=== PATIENT | female | born 1975 | race Caucasian/White ===

== ENCOUNTER 2018-02-11 09:50 | Emergency (ER) | payer OTHER ==
[~2018-02-11] VITALS: Ht 167.6 cm; Wt 90.7 kg
[~2018-02-11 09:50] MED LIST: BACTRIM DS TAB1 EACH PO; CEPHALEXIN500 MG PO; DOXYCYCLINE HY100 MG PO; NORCO 5-325 TA1 EACH PO; ONDANSETRON HCL8 MG PO
[2018-02-11] MEDS ORDERED: VENTOLIN HFA18 GM INH (10:19)
[2018-02-11] MEDS ORDERED: LEVAQUIN500 MG PO (10:19)
[2018-02-11] MEDS ORDERED: PROMETH-CODEIN 65 ML PO (10:19)
== END 2018-02-11 10:20 | disposition home or self-care (01) ==
LOC: ED 09:50
DX: J40 Bronchitis, not specified as acute or chronic (principal); F17.200 Nicotine dependence, unspecified, uncomplicated
CPT/HCPCS: 99283

== ENCOUNTER 2021-09-12 06:00 | Day surgery (SDC) | payer OTHER ==
[~2021-09-12] VITALS: Ht 167.6 cm; Wt 121.8 kg
[~2021-09-12 06:00] MED LIST changes: +ANUSOL-HC25 MG PR; +FLOVENT HFA12 GM INH; +LEVAQUIN500 MG PO; +LISINOPRIL20 MG PO; +PROMETH-CODEIN 65 ML PO; +VENTOLIN HFA18 GM INH
--- NOTE | 2021-09-12 09:52 | NUR ---
09/12/21 0952 Loida Hawley 0942- PT ARRIVES TO PACU WITH IN OPA IN PLACE. PT HAS BOTH ARMS UP IN THE AIR AND TENSE. TRYING TO REORIENT THE PT AND HELP HER RELAX. RESP EVEN AND UNLABORED. AFTER A FEW ATTEMPTS PT IS ABLE TO BE CALMED AND RELAXES HER ARMS AT HER SIDE. OXYGEN SAT HIGH 90'S ON 6L VIA MASK.
--- NOTE | 2021-09-12 10:10 | NUR ---
PT ALERT, ORIENTED AND SOMEWHAT ANXIOUS. HER WAS HERE BUT SHE SENT HIM OUT. HE HAS DIFFICULTY IN HOSPITALS AND WAS NOT HELPING. WILL RETURN FOR DC. PT WANTED TO GO "TO THE GRAVE WITH ALL HER BODY PARTS"-EVEN THIS ONE IN A JAR IF POSSIBLE. DR JIMÉNEZ HAD DISCUSSED THIS. PT REQUESTED PRAYER, GAVE COMFORT AND ENCOURAGEMENT. WILL FOLLOW NEEDED
--- NOTE | 2021-09-12 10:50 | NUR ---
PATIENT BACK TO ROOM FROM PACU. RECEIVED REPORT FROM BEA NOYOLA. PATIENT RATES PAIN 2/10. DENIES NAUSEA. ALL 4 SURGICAL SITE DRESSINGS ARE CLEAN, DRY, AND INTACT. ICE PACK IN PLACE. PROVIDED PATIENT WITH COFFEE, WATER, AND JELLO. CALL LIGHT WITHIN REACH.
--- NOTE | 2021-09-12 11:34 | NUR ---
PATIENT AWAKE AND RESTING IN BED. VSS. RATES PAIN 2-3/10. DENIES NAUSEA. ALL 4 DRESSINGS ARE CLEAN, DRY, AND INTACT. ICE PACK IN PLACE. PATIENT IS DRINKING WATER. PARTNER AT BEDSIDE. CALL LIGHT WITHIN REACH.
--- NOTE | 2021-09-12 11:58 | NUR ---
STEADY ON FEET WITH ONE PERSON STAND BY ASSIST. DENIES NAUSEA. MEDICATED FOR 3/10 ABD PAIN. VOIDS 200ML CLEAR YELLOW URINE AFTER AMBULATING TO BR. SITTING AT EDGE OF BED, CALL LIGHT IN REACH.
--- NOTE | 2021-09-12 12:09 | NUR ---
PROVIDED PATIENT WITH DISCHARGE INSTRUCTIONS, VERBALIZED UNDERSTANDING AND ALL QUESTIONS ANSWERED. GAVE PATIENT A WHEELCHAIR RIDE TO FRONT OF HOSPITAL WHERE HER PARTNER WAS WAITING.
--- NOTE | 2021-09-13 07:36 | OR ---
[facility] [address] [place], [place] [address] Signed DATE OF OPERATION: 09/12/2021 SURGEON: Reese Jiménez MD PREOPERATIVE DIAGNOSES: 1. Chronic cholelithiasis, cholecystitis. 2. Focal nodular hyperplasia. POSTOPERATIVE DIAGNOSES: 1. Chronic cholelithiasis, cholecystitis. 2. Focal nodular hyperplasia. PROCEDURE: Laparoscopic cholecystectomy without intraoperative cholangiogram. ESTIMATED BLOOD LOSS: Minimal. FINDINGS: Efren indeed had a large 3 x 4 cm stone impacted in the neck of her gallbladder. Because of this, we could not insert our intraoperative cholangiocatheter. Therefore, the intraoperative cholangiogram was abandoned. We could see a lesion on the top of the right lobe of her liver. She does have a history of focal nodular hyperplasia. INDICATIONS: Efren is a 46-year-old obese female at 5 feet 4 inches and a body mass index of 45. She was having trouble with epigastric belt-like abdominal pain. It got worse the last few months. She has had it for almost 2 years. She went to her primary care provider. The ultrasound in February of 2021, demonstrated a 3 cm stone in the neck of the gallbladder. Common bile duct was unremarkable. Incidentally, liver lesion was noted. A CT scan of the abdomen and pelvis followed demonstrating the large gallstone along with the liver lesion. Her alpha-fetoprotein level was normal at 2.7. She had been referred to her spectrographic analyst, Dr. Brittny Jenkins at [facility]. An MRI followed and she has benign focal nodular hyperplasia of the liver. This does not require further followup. However, she is symptomatic from her large gallstone. She was asked to see me as the local general surgeon, have her gallbladder removed. In addition, she has had a change in bowel habits with constipation, but occasional diarrhea. She would normally go every day, but now is going every 3rd day. She has also seen some intermittent rectal bleeding and had been to the emergency room in that regard. As a result, she was asked to also see me for a colonoscopy following the Electronically Signed By: REESE JIMÉNEZ MD 09/13/21 0736 PATIENT NAME: EFREN CASTANEDA OPERATIVE REPORT DATE OF : 77 REPORT #: [id number] PHYSICIAN: REESE JIMÉNEZ MD PCP: CLAUDIA ISAACS NP REPORT IS CONFIDENTIAL AND NOT TO BE RELEASED WITHOUT AUTHORIZATION [facility] [address] [place] [id number] Signed gallbladder surgery. In the office, I gave her a booklet on the gallbladder. We had reviewed the location and function of the gallbladder. We reviewed gallstones. We reviewed laparoscopic versus open cholecystectomy. She understands the expected intraop and postop course. We did review the risks including, but not limited to bleeding, infection, scarring, change in contour of the skin, damage to bowel, damage to main bile duct, incisional hernias, and other unforeseen comorbidities. She had expressed understanding and wished to proceed. PROCEDURE NOTE: I met with Efren in our preop area. We reviewed her above findings. After this, she was taken into the operating room and placed in the supine position. She was placed under general endotracheal tube anesthesia. She was given preoperative antibiotics along with subcutaneous heparin. SCDs were utilized. She was then prepped and draped in the usual sterile fashion. All trocars were placed in her usual positions under direct visualization of the camera without difficulty. We had taken pictures throughout for photodocumentation. She had chronic inflammatory changes of the omentum to her gallbladder from the top all the way down to the triangle of Calot. It took an extra nurse to scrub in and a few extra minutes to carefully dissect these adhesions down and away from her triangle of Calot. We dissected out the triangle of Calot and we followed the cystic artery and clipped it several times and divided it sharply. We then developed the cystic duct and we found that her cystic duct was quite deep and behind the large gallstone. We really did not feel comfortable trying to access that from a technical standpoint with our cholangiocatheter. The common bile duct was normal on preoperative ultrasound as well as laboratory work. We therefore abandoned our intraoperative cholangiogram. The cystic duct stump was clipped x2 and then divided sharply next to the gallbladder itself. It took a few extra minutes to very slowly and carefully remove the gallbladder from the gallbladder fossa with the help of our ball-tip cautery. The gallbladder was then placed into an EndoCatch bag. The right upper quadrant had been irrigated and suctioned out until clear. We used our laparoscopic suturing device to pass 0-Vicryl suture on either side of the fascia of the subxiphoid trocar site to close that primarily. After this, we had to enlarge our supraumbilical trocar site in order to remove the gallstone and the gallbladder. We opened the gallbladder on the back table by our circulating nurse. It had tremendously thick black bile and a very large 3 x 4 cm gallstone. She had chronic inflammatory changes to the gallbladder wall. We closed the supraumbilical trocar site with interrupted [id number] 0-Vicryl sutures. Local anesthetic was injected into all trocar sites. Each trocar site was irrigated and suctioned out until clear. We closed the skin and dermis of each trocar site with interrupted 3-0 subcuticular Monocryl sutures. We used a 5-0 fast absorbing plain gut suture to close the skin of the supraumbilical trocar site. After this, dry gauze and tape were applied over all incisions. Efren was awakened from her anesthesia, extubated in the OR, and taken to recovery room in stable condition. Electronically Signed By: REESE JIMÉNEZ MD 09/13/21 0736 PATIENT NAME: EFREN CASTANEDA OPERATIVE REPORT DATE OF : 77 REPORT #: [id number] PHYSICIAN: REESE JIMÉNEZ MD PCP: CLAUDIA ISAACS NP REPORT IS CONFIDENTIAL AND NOT TO BE RELEASED WITHOUT AUTHORIZATION [address] [address] Signed MD ANGELINA Montejo/MODL /[id number] cc: MD Claudia German, FLAKER TENDER Reese Jiménez MD Chart Filed Incomplete Copies: BRITTNY JENKINS MD, ANDREW L MD CHART FILED INCOMPLETE ~ Electronically Signed By: REESE JIMÉNEZ MD 09/13/21 0736 PATIENT NAME: EFREN CASTANEDA OPERATIVE REPORT DATE OF : 77 REPORT #: [id number] PHYSICIAN: REESE JIMÉNEZ MD PCP: CLAUDIA ISAACS NP REPORT IS CONFIDENTIAL AND NOT TO BE RELEASED WITHOUT AUTHORIZATION
--- NOTE | 2021-09-16 13:39 | PATH ---
[facility] [address] [place], [place] [address] Signed SPECIMEN(S): A GALLBLADDER AND GALLSTONE SPECIMEN SOURCE: A. GALLBLADDER AND GALLSTONE CLINICAL HISTORY: Laparoscopic cholecystectomy. Cholelithiasis. FINAL PATHOLOGIC DIAGNOSIS: Gallbladder, cholecystectomy: - Chronic cholecystitis. - Cholelithiasis. - No evidence of neoplasia. REGANK:nallely:C2NR MICROSCOPIC EXAMINATION: Histologic sections of all submitted blocks are examined by light microscopy. These findings, together with the gross examination, support the pathologic diagnosis. GROSS DESCRIPTION: The specimen, labeled "CS, A," and designated on the requisition "gallbladder and gallstone," is received in formalin and consists of Specimen: Previously opened gallbladder. Dimensions: 9.3 x 4.8 cm. Serosa: Multi-pigmented and ragged. Cystic Duct: Narrowed. Calculi: One large, two-toned green, round calculus measuring 3.9 x 2.6 x 2.5 cm. Mucosa: Brown-pink with congested areas with roughened striations. Wall thickness: Up to 0.5 cm. Lymph node: No pericystic lymph nodes are grossly identified. Additional: None. Candle Maker sections are submitted in cassette (A1). AT (under the direct supervision of a pathologist) The Gross Description was prepared using a voice recognition system. The report was reviewed for accuracy; however, sound-alike word errors, addition and/or deletions may occur. If there is any question about this report, please contact Client Services. PERFORMING LABORATORY: PATIENT NAME: EFREN CASTANEDA PATHOLOGY DATE OF : 77 REPORT #: [id number] PHYSICIAN: SUDEEP BEDOLLA PCP: JINNY ISAACS NP REPORT IS CONFIDENTIAL AND NOT TO BE RELEASED WITHOUT AUTHORIZATION [facility] [address] [place], [place] [address] Signed The technical component was performed by [facility], [address] [place] [address] (Spinning Mule Tender: Shruthi Gonsalez MD; CLIA# [id number]). [facility] [place] [address]. Diagnostician: Quentin Zaidi MD Pathologist Electronically Signed 09/16/2021 Copies: ~ PATIENT NAME: EFREN CASTANEDA PATHOLOGY DATE OF : 77 REPORT #: [id number] PHYSICIAN: SUDEEP BEDOLLA PCP: JINNY ISAACS NP REPORT IS CONFIDENTIAL AND NOT TO BE RELEASED WITHOUT AUTHORIZATION
== END 2021-09-12 12:09 | disposition home or self-care (01) ==
LOC: DS 06:00
PROVIDERS: ATTEND Colon & Rectal Surgery
PROC: 0FT44ZZ Resection of Gallbladder, Percutaneous Endoscopic Approach (ICD-10-PCS; principal; 2021-09-12 06:45)
DX: K80.10 Calculus of gallbladder with chronic cholecystitis without obstruction (principal); K76.89 Other specified diseases of liver; K59.00 Constipation, unspecified; I10 Essential (primary) hypertension; E66.01 Morbid (severe) obesity due to excess calories; J44.9 Chronic obstructive pulmonary disease, unspecified; F17.210 Nicotine dependence, cigarettes, uncomplicated; K21.9 Gastro-esophageal reflux disease without esophagitis; R73.03 Prediabetes; Z68.42 Body mass index [BMI] 45.0-49.9, adult
CPT/HCPCS: 00790; J0131; J0330; J0690; J1100; J1644; J1885; J2405; J2704; J3010; J7121

== ENCOUNTER 2021-09-13 21:34 | Emergency (ER) | payer OTHER ==
[~2021-09-13] VITALS: Ht 167.6 cm; Wt 121.6 kg
--- OUTSIDE RECORDS SUMMARY | 2021-09-13 21:36 | XMS ---
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 Jennifer VISIT COUNT (12 MO.) 2 MAGALY Morley TOTAL 2 NOTE: Visits indicate total known visits. ED/UCC VISIT TRACKING (12 MO.) 09/13/2021 21:34 [facility]AL[facility] [place] TYPE: Emergency COMPLAINT: - POST OP PROBLEM 06/05/2021 02:28 [facility] [place] TYPE: Emergency COMPLAINT: - RECTAL BLEEDING INPATIENT VISIT TRACKING (12 MO.) No inpatient visits to display in this time frame [email or web address]
== END 2021-09-13 23:15 | disposition left against medical advice (07) ==
LOC: ED 21:34
DX: R10.11 Right upper quadrant pain (principal); I10 Essential (primary) hypertension; F17.200 Nicotine dependence, unspecified, uncomplicated; Z79.899 Other long term (current) drug therapy
CPT/HCPCS: 74177; 80053; 83690; 85025; 99284-25

== ENCOUNTER 2021-09-18 05:09 | Emergency (ER) | payer OTHER ==
[~2021-09-18] VITALS: Ht 167.6 cm; Wt 117.9 kg
--- OUTSIDE RECORDS SUMMARY | 2021-09-18 05:12 | XMS ---
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 Care History Medical/Surgical 09/15/2021 [facility] - Patient is currently established with [facility]. If patient is seen in the ED during business hours. Please contact CHWs at [facility]. Care Recommendation: If this patient has had 5 or more Emergency Department visits in the last 12 months.\T\nbsp; Patient will require education on the scope and purpose of the ED as an acute care provider not a Primary Care Provider and should not be utilized for chronic conditions.\T\nbsp; These are guidelines and the provider should exercise clinical judgment when providing care. Jennifer VISIT COUNT (12 MO.) 3 MAGALY Morley TOTAL 3 NOTE: Visits indicate total known visits. 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
== END 2021-09-18 06:46 | disposition home or self-care (01) ==
LOC: ED 05:09
DX: M79.652 Pain in left thigh (principal); M79.662 Pain in left lower leg; I10 Essential (primary) hypertension; F17.200 Nicotine dependence, unspecified, uncomplicated; Z79.899 Other long term (current) drug therapy
CPT/HCPCS: 93971; 99283-25

== ENCOUNTER 2022-05-14 05:48 | Emergency (ER) | payer OTHER ==
[~2022-05-14] VITALS: Ht 167.6 cm; Wt 116.0 kg
--- OUTSIDE RECORDS SUMMARY | 2022-05-14 05:50 | XMS ---
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 Details: PATIENT LEFT AMA CRITERIA MET - [facility] - Has Care Guidelines - Group Notification CARE PROVIDERS JINNY ISAACS Emergency Medicine 06/05/2021-Current PHONE: [phone] TIFFANIE DAMON Nurse Practitioner: Family 07/03/2019-Current PHONE: Unknown Rupert has no Care Guidelines for this patient. Care History Medical/Surgical 09/18/2021 [facility] Patient has follow up visit with Dr. Rogers on 09/22/2021. 09/15/2021 [facility] - Patient is currently established with [facility]. If patient is seen in the ED during business hours. Please contact CHWs at [facility]. Care Recommendation: If this patient has had 5 or more Emergency Department visits in the last 12 months.\T\nbsp; Patient will require education on the scope and purpose of the ED as an acute care provider not a Primary Care Provider and should not be utilized for chronic conditions.\T\nbsp; These are guidelines and the provider should exercise clinical judgment when providing care. E.D. VISIT COUNT (12 MO.) 4 MAGALY Morley TOTAL 4 NOTE: Visits indicate total known visits. 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
== END 2022-05-14 06:51 | disposition home or self-care (01) ==
LOC: ED 05:48
DX: K11.5 Sialolithiasis (principal); I10 Essential (primary) hypertension; F17.200 Nicotine dependence, unspecified, uncomplicated; Z79.899 Other long term (current) drug therapy
CPT/HCPCS: 99283

== ENCOUNTER 2023-09-22 23:18 | Emergency (ER) | payer OTHER ==
[~2023-09-22] VITALS: Ht 167.6 cm; Wt 108.0 kg
--- OUTSIDE RECORDS SUMMARY | 2023-09-22 23:25 | XMS ---
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 - Patient with suicidal and/or homicidal ideations eloped. - Patient eloped with IV in place. Details: PATIENT LWBS CRITERIA MET - Group Notification CARE PROVIDERS JINNY ISAACS Emergency Medicine 06/05/2021-Current PHONE: [phone] TIFFANIE DAMON Nurse Practitioner: 07/03/2019-Current PHONE: Unknown -Donnie- Dentist: Vacuum Closing Machine Operator [facility] PHONE: [phone] Rupert has no Care Guidelines for this patient. Care History Medical/Surgical 09/18/2021 [facility] Patient has follow up visit with Dr. Rogers on 09/22/2021. 09/15/2021 [facility] - Patient is currently established with [facility]. If patient is seen in the ED during business hours. Please contact CHWs at [facility]. Care Recommendation: If this patient has had [...] providing care. E.D. VISIT COUNT (12 MO.) 2 [facility]. TOTAL 2 NOTE: Visits indicate total known visits. ED/UCC VISIT TRACKING (12 MO.) 09/22/2023 23:18 [facility] [place] TYPE: Emergency COMPLAINT: - LT EAR PAIN 06/17/2023 07:10 MAGAL[facility] [place] TYPE: Emergency COMPLAINT: - FLU SYMPTOMS DIAGNOSES: - COVID-19 - Essential (primary) hypertension - Headache, unspecified - Nicotine dependence, unspecified, uncomplicated - Other senior care (current) drug therapy INPATIENT VISIT TRACKING (12 MO.) No inpatient visits to display in this time frame [email or web address]
[2023-09-22 23:55] VITALS: BP 135/83
== END 2023-09-22 23:58 | disposition home or self-care (01) ==
LOC: ED 23:18
DX: H60.92 Unspecified otitis externa, left ear (principal); I10 Essential (primary) hypertension; F17.200 Nicotine dependence, unspecified, uncomplicated; Z79.899 Other long term (current) drug therapy
CPT/HCPCS: 99283; A9270

== ENCOUNTER 2025-05-05 08:21 | Emergency (ER) | payer OTHER ==
[~2025-05-05] VITALS: Ht 167.6 cm; Wt 100.0 kg
[2025-05-05] MEDS ORDERED: HYDROCODONE/ACETA 5/325 TAB PO ONE ×2 (08:30→09:00)
[2025-05-05] MEDS ORDERED: HYDROCODON-ACE1 EA10 PO (09:16)
[2025-05-05 09:52] VITALS: BP 138/87
== END 2025-05-05 09:53 | disposition home or self-care (01) ==
LOC: ED 08:21
DX: S42.255A Nondisplaced fracture of greater tuberosity of left humerus, initial encounter for closed fracture (principal); I10 Essential (primary) hypertension; F17.200 Nicotine dependence, unspecified, uncomplicated; W01.0XXA Fall on same level from slipping, tripping and stumbling without subsequent striking against object, initial encounter
CPT/HCPCS: 73030; 99283

== ENCOUNTER 2025-05-21 08:44 | Day surgery (SDC) | payer OTHER ==
[~2025-05-21] VITALS: Ht 165.1 cm; Wt 115.0 kg
[~2025-05-21 08:44] MED LIST changes: +CEFAZOLIN SODIUM 2 GM/20 ML SYR IV SCH; +HYDROCODON-ACE1 EA10 PO; +IBLOOD GLUCOSE TEST STRIP 1 EA TEST VI PRN; +LACTATED RINGER'S 1,000 ML IV SCH; +LIDOCAINE HCL 1% 5 ML SDV INJ ONE; +TRANEXAMIC ACID IN NACL,ISO-OS 1,000 MG/100 ML PIGGYBACK IV SCH
[2025-05-21 09:13] VITALS: BP 125/67
[2025-05-21] MEDS ORDERED: MIDAZOLAM HCL 2 MG/2 ML VIAL ONE (09:23)
[2025-05-21] MEDS ORDERED: Ropivacaine HCl 0.5% 30 ML VIAL ONE (09:23)
[2025-05-21] MEDS ORDERED: LIDOCAINE HCL 2% 5 ML SDV ONE ×2 (09:23→11:19)
[2025-05-21] MEDS ORDERED: DEXAMETHASONE SOD PHOS 10 MG/ML VIAL ONE (09:55)
[2025-05-21] MEDS ORDERED: HYDROCODONE/ACETA 7.5/325 TAB PO PRN (10:45)
[2025-05-21] MEDS ORDERED: KETOROLAC TROMETHAMINE 15 MG/ML VIAL IV PRN (10:45)
[2025-05-21] MEDS ORDERED: fentaNYL citrate 100 MCG/2 ML VIAL ONE (10:58)
[2025-05-21] MEDS ORDERED: propofoL 200 MG/20 ML VIAL ONE (11:19)
[2025-05-21] MEDS ORDERED: ROCURONIUM BROMIDE 50 MG/5 ML SYR ONE (11:19)
[2025-05-21] MEDS ORDERED: ondansetron HCL 4 MG/2 ML VIAL ONE (11:19)
[2025-05-21] MEDS ORDERED: PHENYLEPHRINE HCL 10 MG/ML VIAL ONE (11:22)
[2025-05-21] MEDS ORDERED: SEVOFLURANE 250 ML BTL INH ONE (11:28)
[2025-05-21] MEDS ORDERED: TRANEXAMIC ACID IN NACL,ISO-OS 1,000 MG/100 ML PIGGYBACK IV SCH (11:32)
[2025-05-21] MEDS ORDERED: SUGAMMADEX SODIUM 200 MG/2 ML ML ONE (12:01)
[2025-05-21] MEDS ORDERED: DICLOFENAC SODI75 MG PO (12:04)
[2025-05-21] MEDS ORDERED: HYDROCODON-ACE1 EA11 PO (12:04)
[2025-05-21] MEDS ORDERED: droPERidol 5 MG/2 ML VIAL IV PRN (12:30)
[2025-05-21] MEDS ORDERED: fentaNYL citrate 50 MCG/ML SDV IV PRN (12:30)
[2025-05-21] MEDS ORDERED: NALOXONE HCL 0.4 MG SYR IV PRN (12:30)
--- NOTE | 2025-05-21 12:31 | NUR ---
05/21/25 1231 Ursula Ley 1212-PT ARRIVES TO PACU, VIA STRETCHER, PT REACTIVE TO STIMULI BUT RESTS W/ EYES CLOSED, OPA IN PLACE, VSS ON 6L VIA MASK, RR EVEN AND UNLABORED. CRYO CUFF APPLIED TO LT SHOULDER. 1218-PT AWAKENS TO VERBAL AND TACTILE STIMULI, OPA REMOVED, VSS ON 6L VIA MASK, PT DROWSY AND FALLS BACK TO SLEEP EASILY, RR EVEN AND UNLABORED. 1230-PT AWAKENS EASILY TO VOICE, DENIES PAIN OR NAUSEA, TITRATED TO RA, VS REMAIN STABLE.
--- NOTE | 2025-05-21 12:50 | NUR ---
PT ARRIVES TO DS DEPT VIA STRETCHER. PT IS A&O AND ON RA, W/O2 SATS >90% VIA PULSE OX. PT RESPIRATIONS EVEN AND UNLABORED, NO SIGNS OF DISTRESS AT THIS TIME. PT ABLE TO WIGGLE FINGERS AND WRIST, REPORTS NUMBNESS THROUGHOUT. AT BEDSIDE FOR REPORT FROM SARAH AZUL. DRESSING VISUALIZED BY BOTH RN'S. CRACKERS, JELLO, APPLESAUCE, AND PUDDING PROVIDED AT PT REQUEST. PT TOLERATING SIPS OF ICE WATER WITHOUT ANY REPORTED ONSET NAUSEA OR DIFFICULTY SWALLOWING. CALL LIGHT WITHIN REACH, PT STATES NO FURTHER QUESTIONS OR NEEDS AT THIS TIME.
[2025-05-21 12:52] VITALS: BP 128/78
--- NOTE | 2025-05-21 13:30 | NUR ---
IN PT ROOM FOR PAIN ASSESSMENT. PT CONTINUES TO BE ABLE TO WIGGLE FINGERS AND WRIST, BUT STATES SHOULDER IS NUMB. PT REPORTS NO PAIN OR NEED FOR PRN PAIN MED AT THIS TIME. REMAINS AT BEDSIDE. PT HAS TOLERATED 75% OF SNACKS W/NO REPORTED ONSET OF NAUSEA. CALL LIGHT WITHIN REACH, PT STATES NO FURTHER NEEDS OR QUESTIONS AT THIS TIME.
[2025-05-21 13:46] VITALS: BP 123/77
--- NOTE | 2025-05-21 13:50 | NUR ---
IN PT ROOM FOR PAIN ASSESSMENT AND VS. PT REPORTS URGE TO URINE VOID. PT SITS AT BEDSIDE AND REPORTS NO INCREASE IN DIZZINESS OR NAUSEA. PT STANDS AT BEDSIDE, GAIT IS STEADY. PT TO RESTROOM W/THIS RN STANDBY ASSIST. PT URINE VOIDS 600 ML OF CLEAR/YELLOW URINE. PT BACK TO ROOM AND GETTING DRESSED W/THIS RN ASSIST. ARM REMAINS IN SLING. NO ACUTE CHANGES FROM PREVIOUS ASSESSMENT.
--- NOTE | 2025-05-21 14:00 | NUR ---
IN PT ROOM FOR DC EDUCATION AT THIS TIME. PT STATES VERBAL UNDERSTANDING AND NO FURTHER QUESTIONS OR NEEDS AT THIS TIME. PT OFF OF UNIT VIA WC TO PASSENGER SIDE OF 'S VEHICLE. ALL BELONGINGS IN PT POSSESSION AT THIS TIME. PT REPORTS NO FURTHER QUESTIONS OR NEEDS. ICE WATER AND ICE PACK PROVIDED.
[2025-05-21] MEDS ORDERED: DICLOFENAC SOD 75 MG TABEC PO SCH (21:00)
--- NOTE | 2025-05-22 18:36 | OR ---
[facility] [address] [place], [place] [address] Signed DATE OF OPERATION: 05/21/2025 SURGEON: Carol Ann Sumner MD PREOPERATIVE DIAGNOSIS: Greater tuberosity fracture, left proximal humerus. POSTOPERATIVE DIAGNOSIS: Greater tuberosity fracture, left proximal humerus. PROCEDURE PERFORMED: Open reduction and internal fixation of left greater tuberosity. NURSERY SCHOOL TEACHER: Alta Cameron PA-C. Alta was present and critical for all portions of the procedure. ANESTHESIA: General. BLOOD LOSS: 150 mL. IMPLANTS: Two 4.0 screws with washers. BRIEF HISTORY: Efren is a 49-year-old female, suffered a fall fracturing her tuberosity. This showed instability by changing positions and migrating proximally between the first and second radiographs. Risks and benefits of operative treatment were discussed with her and she elected to proceed. DESCRIPTION OF PROCEDURE: Once consent was obtained, she was taken to the operating room. After adequate anesthesia, she was placed in a beach chair position. The left shoulder was prepped and draped in a standard sterile fashion. Due to her body habitus, we elected to proceed with a deltopectoral approach. The skin was incised longitudinally, carried through skin and subcutaneous tissue. The deltopectoral interval was then entered. The clavipectoral fascia was opened longitudinally. The deltoid was mobilized and with the arm in abduction to allow visualization of the bicipital groove. Careful dissection of Electronically Signed By: CAROL ANN SUMNER MD 05/22/25 1836 PATIENT NAME: EFREN CASTANEDA OPERATIVE REPORT DATE OF : 77 REPORT #: [id number] PHYSICIAN: CAROL ANN SUMNER MD PCP: JINNY ISAACS NP REPORT IS CONFIDENTIAL AND NOT TO BE RELEASED WITHOUT AUTHORIZATION [facility] [address] [place], [place] [address] Signed the tuberosity was undertaken and it was mobilized as best we could. Her bone was extremely soft and kept wanting to break into pieces. We did mobilize it and pin it using the pin to for reduction lever. Once this was accomplished, two screws were placed into the tuberosity using 4.0 cancellous screws. These were done under biplanar fluoroscopy. The screws were placed with washers and tightened to two finger tightness. Once this was accomplished, the shoulder was moved. The tuberosity was noted to be intact on fluoroscopy and direct visualization. The wound was copiously irrigated with normal saline, closed with 2-0 Vicryl for the deltopectoral interval, 2-0 Monocryl for the subcutaneous tissue, and mason for the skin. The wound was dressed with an Acticoat-7 dressing and she was awakened, taken to the recovery room in satisfactory condition. All sponge, needle, and instrument counts were correct. Carol Ann Sumner MD BA/JESENIA /[id number] Copies: ~ Electronically Signed By: CAROL ANN SUMNER MD 05/22/25 1836 PATIENT NAME: EFREN CASTANEDA OPERATIVE REPORT DATE OF : 77 REPORT #: [id number] PHYSICIAN: CAROL ANN SUMNER MD PCP: JINNY ISAACS NP REPORT IS CONFIDENTIAL AND NOT TO BE RELEASED WITHOUT AUTHORIZATION
== END 2025-05-21 14:05 | disposition home or self-care (01) ==
LOC: DS 08:44
PROVIDERS: ATTEND Specialist
PROC: 0PSG04Z Reposition Left Humeral Shaft with Internal Fixation Device, Open Approach (ICD-10-PCS; principal; 2025-05-21 11:30)
DX: S42.252A Displaced fracture of greater tuberosity of left humerus, initial encounter for closed fracture (principal); W19.XXXA Unspecified fall, initial encounter; I10 Essential (primary) hypertension; Z79.899 Other long term (current) drug therapy; Z87.891 Personal history of nicotine dependence
CPT/HCPCS: 01630; 64415; 73060; 76942; 84703; C1713; J0690; J1100; J2003; J2250; J2371; J2405; J2704; J2795; J3010; J3490; J7121